=== PATIENT | female | born 1945 | race Caucasian/White ===

== ENCOUNTER 2016-09-01 09:55 | Outpatient (RCR) | payer OTHER | END 2016-09-26 | disposition home or self-care (01) | LOC: PTY 09:55 | DX: S83.207D Unspecified tear of unspecified meniscus, current injury, left knee, subsequent encounter (principal); M19.90 Unspecified osteoarthritis, unspecified site; X58.XXXD Exposure to other specified factors, subsequent encounter | CPT/HCPCS: 97110; 97140; G0283 ==

== ENCOUNTER 2016-12-05 10:30 | Outpatient (RCR) | payer OTHER | END 2016-12-24 | disposition home or self-care (01) | LOC: PTY 10:30 | DX: S83.207D Unspecified tear of unspecified meniscus, current injury, left knee, subsequent encounter (principal); M19.90 Unspecified osteoarthritis, unspecified site; M94.262 Chondromalacia, left knee ==

== ENCOUNTER 2017-01-02 09:45 | Outpatient (RCR) | payer OTHER | END 2017-01-24 | disposition home or self-care (01) | LOC: PTY 09:45 | DX: S83.207D Unspecified tear of unspecified meniscus, current injury, left knee, subsequent encounter (principal); M94.262 Chondromalacia, left knee; M19.90 Unspecified osteoarthritis, unspecified site ==

== ENCOUNTER 2017-01-26 09:00 | Outpatient (RCR) | payer OTHER | END 2017-02-23 | disposition home or self-care (01) | LOC: PTY 09:00 | DX: S83.207D Unspecified tear of unspecified meniscus, current injury, left knee, subsequent encounter (principal); M94.262 Chondromalacia, left knee; M19.90 Unspecified osteoarthritis, unspecified site ==